=== PATIENT | male | born 1995 | race Caucasian/White ===

== ENCOUNTER 2018-03-20 15:41 | Emergency (ER) | payer SELFPAY ==
[2018-03-20 15:45] VITALS: TEMP 98.6; BMI 28.3
[2018-03-20] MEDS ORDERED: ACETAMINOPHEN 1000 MG/100 ML VIAL (NON FORMULARY) IVPB ONE (15:47)
[2018-03-20] MEDS ORDERED: SODIUM CHLORIDE 1,000 ML IV STA (15:47)
--- NOTE | 2018-03-20 15:57 | PDOC ---
History of Present Illness - History of Present Illness Initial Comments: 03/20/18 16:05 The patient is a 22 year old male with no significant past medical history who presents to the ED with chest pain and headache that began this morning. He reports consuming a a lot of cocaine and alcohol yesterday while at a green party and was asymptomatic until this morning when he woke up with a burning pain in his chest and left arm, a globalized pressure headache and an overall feeling of anxiety. Patient is very anxious in the ED. He denies this being his first time using cocaine but denies experiencing similar symptoms in the past. He reports associated chills and nausea but denies any SOB, cough, fever, dizziness , vomiting, or urinary complaints. Patient denies any personal or familial cardiac history. <Laurel Eng - Last Filed: 03/20/18 17:15> - General History Source: Patient Exam Limitations: No Limitations <Sesar Rodriguez - Last Filed: 03/20/18 18:48> - General Chief Complaint: Chest Pain Stated Complaint: chest pain,head ache Time Seen by Provider: 03/20/18 15:47 Past History <Laurel Eng - Last Filed: 03/20/18 17:15> - Past Medical History COPD: No Other medical history: pt denies - Suicide/Smoking/Psychosocial Hx Smoking History: Unknown if ever smoked Have you smoked in the past 12 months: No Hx Alcohol Use: No Drug/Substance Use Hx: No Substance Use Type: Cocaine <Sesar Rodriguez - Last Filed: 03/20/18 18:48> - Past Medical History Allergies/Adverse Reactions: Allergies Allergy/AdvReac Type Severity Reaction Status Date / Time No Known Allergies Allergy Verified 03/20/18 15:43 Home Medications: Ambulatory Orders Pantoprazole Sodium [Protonix] 40 mg PO DAILY #14 tablet. 04/12/16 Review of Systems - Review of Systems Able to Perform ROS?: Yes Comments:: 03/20/18 16:05 GENERAL/CONSTITUTIONAL: (+) Chills. No fever. No weakness. HEAD, EYES, EARS, NOSE AND THROAT: No change in vision. No ear pain or discharge. No sore throat. CARDIOVASCULAR: (+) Chest pain. No shortness of breath. RESPIRATORY: No cough, wheezing, or hemoptysis. GASTROINTESTINAL: (+) Nausea. No vomiting, diarrhea or constipation. GENITOURINARY: No dysuria, frequency, or change in urination. MUSCULOSKELETAL: No joint or muscle swelling or pain. No neck or back pain. SKIN: No rash NEUROLOGIC: No headache, vertigo, loss of consciousness, or change in strength/ sensation. ENDOCRINE: No increased thirst. No abnormal weight change. HEMATOLOGIC/LYMPHATIC: No anemia, easy bleeding, or history of blood clots. ALLERGIC/IMMUNOLOGIC: No hives or skin allergy. All Other Systems: Reviewed and Negative <Laurel Eng - Last Filed: 03/20/18 17:15> *Physical Exam - Vital Signs Last Vital Signs Temp Pulse Resp BP Pulse Ox 98.6 F 118 H 20 156/95 99 03/20/18 15:42 03/20/18 15:42 03/20/18 15:42 03/20/18 15:42 03/20/18 15:42 - Physical Exam Comments: 03/20/18 16:08 GENERAL: Awake, alert, and fully oriented, in no acute distress HEAD: No signs of trauma EYES: PERRLA, EOMI, sclera anicteric, conjunctiva clear ENT: Auricles normal inspection, hearing grossly normal, nares patent, oropharynx clear without exudates. Moist mucosa NECK: Normal ROM, supple, no lymphadenopathy, JVD, or masses LUNGS: Breath sounds equal, clear to auscultation bilaterally. No wheezes, and no crackles HEART: Regular rate and rhythm, normal S1 and S2, no murmurs, rubs or gallops ABDOMEN: Soft, nontender, normoactive bowel sounds. No guarding, no rebound. No masses EXTREMITIES: Normal range of motion, no edema. No clubbing or cyanosis. No cords, erythema, or tenderness NEUROLOGICAL: Cranial nerves II through XII grossly intact. Normal speech, normal gait SKIN: Warm, Dry, normal turgor, no rashes <Laurel Eng - Last Filed: 03/20/18 17:15> - Vital Signs Last Vital Signs Temp Pulse Resp BP Pulse Ox 98.6 F 118 H 20 156/95 99 03/20/18 15:42 03/20/18 15:42 03/20/18 15:42 03/20/18 15:42 03/20/18 15:42 <Sesar Rodriguez - Last Filed: 03/20/18 18:48> Heart Score/ECG Review - History History: Slightly suspicious - Electrocardiogram EKG: Normal - Age Age: </= 43 #1 ECG reviewed & interpreted by me at: 16:00 03/20/18 16:01 NSR 92, no no std/carloz, TWI III, normal axis, normal intervals, QTC 437 msec <Sesar Rodriguez - Last Filed: 03/20/18 18:48> ED Treatment Course - LABORATORY CBC & Chemistry Diagram: 03/20/18 15:58 03/20/18 15:58 - RADIOLOGY Radiograph Interpretation: 03/20/18 17:15 Chest X-ray as reviewed by Dr. Crowley reports no acute chest pathology. Weak inspiration and large heart. - Medications Given in the ED: ED Medications Discontinued Medications Generic Name Dose Route Start Last Admin Trade Name Freq PRN Reason Stop Dose Admin Lorazepam 2 mg 03/20/18 15:47 03/20/18 16:02 Ativan Injection - IVPUSH 03/20/18 15:48 2 mg ONCE ONE Administration <Laurel Eng - Last Filed: 03/20/18 17:15> - LABORATORY CBC & Chemistry Diagram: 03/20/18 15:58 03/20/18 15:58 - RADIOLOGY Radiology Studies Ordered: Category Date Time Status CHEST X-RAY PORTABLE* [RAD] Stat Radiology 03/20/18 15:47 Ordered <Sesar Rodriguez - Last Filed: 03/20/18 18:48> Medical Decision Making - Medical Decision Making 03/20/18 15:53 A portion of this note was documented by scribe services under my direction. I have reviewed the details of the note, within reason, and agree with the documentation with the following case summary and management plan written by me. Patient treated in the ED. Nursing notes are reviewed and incorporated into the medical decision-making. Vital signs reviewed. Peripheral IV access obtained by the nurse, laboratory studies are drawn and sent, reviewed and interpreted by myself. Vital Signs Temp Pulse Resp BP Pulse Ox 98.6 F 118 H 20 156/95 99 03/20/18 15:42 03/20/18 15:42 03/20/18 15:42 03/20/18 15:42 03/20/18 15:42 22-year-old male with no past medical history presents with chest pain and headache. The patient reported yesterday that he started "a lot of cocaine ". Denies any injections. Stated that he also drank saying amount alcohol yesterday. Woke up this morning with chest pain and headache and anxiety. Patient reports a sense of impending doom. Stated his chest pain was written down to his left arm but denies shortness of breath. Reports some nausea but denies vomiting. Stated that he has a global tension headache. The patient's here in the ER pacing around and very anxious. He reports his first-time episode. He did report using cocaine prior in the past. Denies recent illnesses , fevers, chills, cough, diarrhea. Denies family history of cardiac disease. I suspect the patient's symptoms are due to cocaine. We'll rule out cocaine WI. Obtain labs including troponin. EKG is nonacute ischemic at this time. Obtain chest x-ray. We'll give benzodiazepines and reassess. If the patient continues to have persistent headache, we'll need to consider head CT. 03/20/18 17:14 CBC, BMP 03/20/18 15:58 03/20/18 15:58 CMP Sodium 139 mmol/L (136-145) 03/20/18 15:58 Potassium 3.6 mmol/L (3.5-5.1) 03/20/18 15:58 Chloride 103 mmol/L (98-107) 03/20/18 15:58 Carbon Dioxide 21 mmol/L (22-28) L 03/20/18 15:58 Anion Gap 15 MMOL/L (8-16) 03/20/18 15:58 BUN 12 mg/dl (7-18) 03/20/18 15:58 Creatinine 0.8 mg/dl (0.6-1.3) 03/20/18 15:58 Creat Clearance w eGFR > 60 (>60) 03/20/18 15:58 Random Glucose 110 mg/dl (74-106) H 03/20/18 15:58 Calcium 9.2 mg/dl (8.4-10.2) 03/20/18 15:58 Total Bilirubin 0.5 mg/dl (0.2-1.0) 03/20/18 15:58 AST 50 U/L (10-42) H 03/20/18 15:58 ALT 68 U/L (10-40) H 03/20/18 15:58 Alkaline Phosphatase 92 U/L (32-92) 03/20/18 15:58 Creatine Kinase 140 IU/L (26-308) 03/20/18 15:58 Troponin I < 0.03 ng/ml (0.00-0.06) 03/20/18 15:58 Total Protein 8.3 g/dl (6.4-8.3) 03/20/18 15:58 Albumin 4.4 g/dl (3.5-5.0) 03/20/18 15:58 Chest xray reviewed. No acute findings. 03/20/18 18:47 The patient was reassessed and he feels complete relief. He has no chest pain and no headache. I explained that the cocaine is likely the cause of all of his symptoms. I gave drug cessation counselling. Will perform a second troponin and if negative and patient reports feeling better, will discharge patient home. Pt signed out to [facility] ED attending Dr. Carter for further management and disposition. <Sesar Rodriguez - Last Filed: 03/20/18 18:48> *DC/Admit/Observation/Transfer - Attestations Scribe Attestion: 03/20/18 16:11 Documentation prepared by Laurel Eng, acting as medical office technician for Sesar Rodriguez MD. <Laurel Eng - Last Filed: 03/20/18 17:15> <Sesar Rodriguez - Last Filed: 03/20/18 18:48> - Discharge Dispostion Condition at time of disposition: Stable
[2018-03-20] MEDS ORDERED: ACETAMINOPHEN INJECTION 100 ML IVPB ONE (16:03)
[2018-03-20 16:21] LABS: ACTIVATED PTT 31.2 SECONDS (25.2-36.5)
[2018-03-20 16:25] LABS: BASO % 0.7 % (0-2.0); EOS % 0.9 % (0-4.5); HEMATOCRIT 49.4 % (35.4-49); HEMOGLOBIN 16.5 GM/dl (11.7-16.9); LYMPH % 29.6 % (8-40); MCH 30.7 pg (25.7-33.7); MCHC 33.4 g/dl (32.0-35.9); MEAN CELL VOLUME 91.9 fl (80-96); MEAN PLT VOLUME 8.2 fl (7.5-11.1); MONO % 6.6 % (3.8-10.2); NEUT % 62.2 % (42.8-82.8); PLATELET COUNT 363 K/MM3 (134-434); RBC 5.38 M/mm3 (4.00-5.60); RDW 12.8 % (11.9-15.9); WHITE BLOOD COUNT 8.4 K/mm3 (4.0-10.8)
[2018-03-20 16:26] LABS: INR 1.11 (0.82-1.09); PROTHROMBIN TIME (PATIENT) 12.4 SEC (10.2-13.0)
[2018-03-20 16:29] LABS: ALBUMIN 4.4 g/dl (3.5-5.0); ALK PHOS 92 U/L (32-92); ANION GAP 15 MMOL/L (8-16); BILIRUBIN,TOTAL 0.5 mg/dl (0.2-1.0); BLOOD UREA NITROGEN 12 mg/dl (7-18); CALCIUM 9.2 mg/dl (8.4-10.2); CHLORIDE 103 mmol/L (98-107); CO2 21 mmol/L (22-28); CREATININE 0.8 mg/dl (0.6-1.3); GLUCOSE,RANDOM 110 mg/dl (74-106); POTASSIUM 3.6 mmol/L (3.5-5.1); SGOT/AST 50 U/L (10-42); SGPT/ALT 68 U/L (10-40); SODIUM 139 mmol/L (136-145); TOT PROT 8.3 g/dl (6.4-8.3)
[2018-03-20 19:30] VITALS: BP 138/79; PULSE 86
--- NOTE | 2018-03-20 19:37 | PDOC ---
*Physical Exam - Vital Signs Last Vital Signs Temp Pulse Resp BP Pulse Ox 98.6 F 86 15 138/79 10 L 03/20/18 15:42 03/20/18 19:29 03/20/18 19:29 03/20/18 19:29 03/20/18 19:29 ED Treatment Course - LABORATORY CBC & Chemistry Diagram: 03/20/18 15:58 03/20/18 15:58 - ADDITIONAL ORDERS Additional order review: Laboratory Results 03/20/18 03/20/18 03/20/18 18:56 15:58 15:58 PT with INR INR PTT (Actin FS) Sodium 139 Potassium 3.6 Chloride 103 Carbon Dioxide 21 L Anion Gap 15 BUN 12 Creatinine 0.8 Creat Clearance w eGFR > 60 Random Glucose 110 H Calcium 9.2 Total Bilirubin 0.5 AST 50 H ALT 68 H Alkaline Phosphatase 92 Creatine Kinase 140 Troponin I 0.03 < 0.03 Total Protein 8.3 Albumin 4.4 03/20/18 15:58 PT with INR 12.4 INR 1.11 PTT (Actin FS) 31.2 Sodium Potassium Chloride Carbon Dioxide Anion Gap BUN Creatinine Creat Clearance w eGFR Random Glucose Calcium Total Bilirubin AST ALT Alkaline Phosphatase Creatine Kinase Troponin I Total Protein Albumin 03/20/18 15:58 RBC 5.38 MCV 91.9 MCHC 33.4 RDW 12.8 MPV 8.2 Neutrophils % 62.2 Lymphocytes % 29.6 D Monocytes % 6.6 Eosinophils % 0.9 Basophils % 0.7 - Medications Given in the ED: ED Medications Discontinued Medications Generic Name Dose Route Start Last Admin Trade Name Freq PRN Reason Stop Dose Admin Acetaminophen 1,000 mg 03/20/18 15:47 03/20/18 16:08 Ofirmev Injection - IVPB 03/20/18 15:48 1,000 mg ONCE ONE Administration Sodium Chloride 1,000 mls @ 1,000 mls/hr 03/20/18 15:47 03/20/18 16:08 Normal Saline - IV 03/20/18 16:46 1,000 mls/hr ASDIR STA Administration Lorazepam 2 mg 03/20/18 15:47 03/20/18 16:02 Ativan Injection - IVPUSH 03/20/18 15:48 2 mg ONCE ONE Administration Medical Decision Making - Medical Decision Making 03/20/18 19:36 Care received at 1900 Briefly, pt presents with CP after cocaine use, had normal EKG, neg first trop, resolution of CP. Pt pending second troponin On my eval, currently CP free Feels much better trop x2 neg Pt well appearing, vitals wnl (O2 sat was 100% on DC, not 10% as documented) All results explained, counseled pt on drug use. Referred pt to PMD as he does not have one. Requests DC home I discussed the physical exam findings, ancillary test results and final diagnoses with the patient. I answered all of the patient's questions. The patient was satisfied with the care received and felt comfortable with the discharge plan and treatment plan. The patient will call their primary care physician within 24 hours to arrange follow-up and will return to the Emergency Department with any new, persistent or worsening symptoms. *DC/Admit/Observation/Transfer Diagnosis at time of Disposition: Chest pain, Cocaine use - Discharge Dispostion Disposition: HOME Condition at time of disposition: Stable Decision to Admit order: No - Referrals Referrals: [facility] [place] [Provider Group] - Patient Instructions Printed Discharge Instructions: DI for Chest Pain Additional Instructions: Follow up with your primary doctor within 1-2 days. Return to the emergency department if you have any new, worsening, or concerning symptoms. Print Language: SINHALA - Post Discharge Activity - Attestations Physician Attestion: 03/20/18 19:38 I, Dr. Maura Carter MD, attest that this document has been prepared under my direction and personally reviewed by me in its entirety. I further attest, that it accurately reflects all work, treatment, procedures and medical decision -making performed by me.
--- NOTE | 2018-03-21 12:10 | EKG ---
Test Reason : Blood Pressure : / mmHG Vent. Rate : 092 BPM Atrial Rate : 092 BPM P-R Int : 144 ms QRS Dur : 100 ms QT Int : 354 ms P-R-T Axes : 045 -02 024 degrees QTc Int : 437 ms NORMAL SINUS RHYTHM NORMAL ECG NO PREVIOUS ECGS AVAILABLE Confirmed by MD VINCENT, KAREN ([id number]) on 03/21/2018 12:10:01 PM Referred By: Confirmed By:KAREN KAUR MD
== END 2018-03-20 19:54 | disposition home or self-care (01) ==
LOC: FER 15:41
PROC: 3E033NZ Introduction of Analgesics, Hypnotics, Sedatives into Peripheral Vein, Percutaneous Approach (ICD-10-PCS; principal; 2018-03-20)
PROC: 3E0337Z Introduction of Electrolytic and Water Balance Substance into Peripheral Vein, Percutaneous Approach (ICD-10-PCS; 2018-03-20)
DX: R07.9 Chest pain, unspecified (principal); F14.90 Cocaine use, unspecified, uncomplicated
CPT/HCPCS: 36415; 71045-TC-FY; 80053; 82550; 84484; 85025; 85610; 85730; 93005; 99284-25; J0131; J7030